=== PATIENT | female | born 1960 | race Caucasian/White ===

== ENCOUNTER 2022-01-15 12:11 | Emergency (ER) | payer BC ==
[2022-01-15] MEDS: Sodium Chloride 0.9% 1,000 ML IV ONE (13:09)
[2022-01-15] MEDS: Ketorolac 30 MG/ML SDV IVPUSH ONE (13:09)
[2022-01-15] MEDS: Metoclopramide 10 MG/2 ML SDV IVPUSH ONE (13:47)
[2022-01-15] MEDS: diphenhydrAMINE 50 MG/ML SDV IVPUSH ONE (13:47)
[2022-01-15 14:07] LABS: BLOOD UREA NITROGEN,BUN 11 mg/dL (7.0-18.0); CARBON DIOXIDE,CO2 26.1 mmol/L (21.0-32.0); CHLORIDE,CL 102 mmol/L (98-107); GLUCOSE RANDOM 95 mg/dL (74-106); POTASSIUM,K 3.9 mmol/L (3.5-5.1); SODIUM,NA 139 mmol/L (136-145)
== END 2022-01-15 14:46 | disposition home or self-care (01) ==
LOC: MW.ED 12:11
DX: G43.909 Migraine, unspecified, not intractable, without status migrainosus (principal); Z88.2 Allergy status to sulfonamides
CPT/HCPCS: 36415; 70450; 80053; 85025; 85610; 96374; 96375; 99284; J1200; J1885; J2765; J7030

== ENCOUNTER 2023-09-06 22:28 | Emergency (ER) | payer BC ==
[2023-09-06] MEDS ORDERED: Ibuprofen 600 MG Tab PO ONE (23:49)
== END 2023-09-07 02:09 | disposition home or self-care (01) ==
LOC: MW.ED 22:28
DX: S22.42XA Multiple fractures of ribs, left side, initial encounter for closed fracture (principal); I10 Essential (primary) hypertension; Z88.2 Allergy status to sulfonamides; W01.0XXA Fall on same level from slipping, tripping and stumbling without subsequent striking against object, initial encounter
CPT/HCPCS: 71250; 99283; A9270

== ENCOUNTER 2023-09-12 09:01 | Emergency (ER) | payer BC, MEDICAID ==
[2023-09-12] MEDS ORDERED: Sodium Chloride 0.9% 10 ML Syringe FLUSH PRN (09:23)
[2023-09-12] MEDS ORDERED: Sodium Chloride 0.9% 2.5 ML Syringe FLUSH PRN (09:23)
[2023-09-12] MEDS ORDERED: Lactated Ringers 1,000 ML IV ONE (09:29)
[2023-09-12 09:38] LABS: BASOPHILS ABSOLUTE AUTO 0.05 K/uL (0.00-0.20); BASOPHILS PERCENT AUTO 1.3 % (0.0-1.0); EOSINOPHILS ABSOLUTE AUTO 0.21 K/uL (0.00-0.45); EOSINOPHILS PERCENT AUTO 5.3 % (0.0-6.0); HEMATOCRIT 37.2 % (37.0-47.0); HEMOGLOBIN 12.9 g/dL (12.0-16.0); IMMATURE GRAN ABSOLUTE AUTO 0.01 K/uL (0.00-0.05); IMMATURE GRAN PERCENT AUTO 0.3 % (0.0-0.4); LYMPHOCYTES ABSOLUTE AUTO 0.43 K/uL (1.00-4.80); LYMPHOCYTES PERCENT AUTO 10.8 % (24.0-44.0); MEAN CORPUSCULAR HEMOGLOBIN 29.7 pg (28.0-32.0); MEAN CORPUSCULAR HGB CONC 34.7 g/dL (32.0-36.0); MEAN CORPUSCULAR VOLUME 85.7 fL (83.0-99.0); MEAN PLATELET VOLUME 9.6 fL (9.4-12.3); MONOCYTES ABSOLUTE AUTO 0.66 K/uL (0.00-0.80); MONOCYTES PERCENT AUTO 16.6 % (0.0-8.0); NEUTROPHILS ABSOLUTE AUTO 2.62 K/uL (1.80-7.70); NEUTROPHILS PERCENT AUTO 65.7 % (41.0-71.0); PLATELET COUNT,PLT 331 K/uL (150-400); RED BLOOD CELL COUNT 4.34 M/uL (4.10-5.30); WHITE BLOOD CELL COUNT,WBC 3.98 K/uL (3.9-11.3)
[2023-09-12 10:05] LABS: INR 1.14 (0.86-1.11)
[2023-09-12 10:09] LABS: A/G RATIO 1.2 (0.9-1.6); ALBUMIN 4.1 g/dL (3.4-5.0); BILIRUBIN TOTAL 0.4 mg/dL (0.2-1.0); CALCIUM 9.2 mg/dL (8.5-10.1); CARBON DIOXIDE,CO2 29.5 mmol/L (21.0-32.0); CREATININE 0.8 mg/dL (0.6-1.0); EST CRCL DRUG DOSING (CG) 62.96 mL/min; POTASSIUM,K 3.8 mmol/L (3.5-5.1); PROTEIN TOTAL,TP 7.5 g/dL (6.4-8.2)
[2023-09-12] MEDS ORDERED: Iopamidol 755 MG/ML 500 ML Multipack Bottle IVPUSH STA (11:19)
== END 2023-09-12 12:27 | disposition home or self-care (01) ==
LOC: MW.ED 09:01
DX: R42 Dizziness and giddiness (principal); G35 Multiple sclerosis; H81.10 Benign paroxysmal vertigo, unspecified ear; Z88.2 Allergy status to sulfonamides
CPT/HCPCS: 36415; 70450; 71275; 80053; 84484; 85025; 85379; 85610; 93005; 96360; 96361; 99284; J3490; J7120; Q9967; 93010; 99282